=== PATIENT | female | born 1970 | race Caucasian/White ===

== ENCOUNTER 2017-01-30 11:05 | Inpatient (IN) | payer MEDICAID ==
[~2017-01-30 11:05] MED LIST: ENULOSE10 GM/151 PO; LASIX20 M1 PO; POTASSIUM CHLO10 ME2 PO; ULTRAM50 M1 PO
[2017-01-30] MEDS ORDERED: ZITHROMAX250 M1 PO (11:26)
[2017-01-30] MEDS ORDERED: PROVENTIL HFA6.7 G1 INH (11:27)
[2017-01-30] MEDS ORDERED: ERYTHROMYCIN1 GM (11:29)
[2017-01-30 12:38] LABS: BASO % 0.5 % (0-2); EOS % 2.2 % (0-7); HCT-HEMATOCRIT 30.7 % (34.0-49.0); HGB-HEMOGLOBIN 9.8 gm/dl (12.0-15.5); IMMATURE GRANULOCYTES ABSOLUTE 0.01 tho/cmm (0-0.03); IMMATURE GRANULOCYTES PERCENT 0.5 % (0-0.3); LYMPH % 60.1 % (20-45); LYMPH ABSOLUTE COUNT 1.1 tho/cmm (0.8-4.5); MCH (MEAN CORPUSCULAR HGB) 32.2 pg (28.0-32.0); MCHC MEAN CORPUSCULAR HGB CONC 31.9 % (32.0-36.0); MONO % 18.6 % (0-12); MONOCYTE ABSOLUTE COUNT 0.3 tho/cmm (0.0-1.2); NEUTROPHILS % 18.1 % (40-80); RED BLOOD COUNT 3.04 mil/cmm (4.00-5.20); RED CELL DISTRIBUTION WIDTH 17.8 % (12.4-16.4)
[2017-01-30 12:40] LABS: NEUTROPHIL-AUTOMATED 0.3 tho/cmm (1.6-8.0); WHITE BLOOD COUNT 1.8 tho/cmm (4.0-10.0)
[2017-01-30 12:41] LABS: NEUTROPHIL ABSOLUTE COUNT 0.3 tho/cmm (1.6-8.0); PLATELET COUNT 24 tho/cmm (150-450)
[2017-01-30 12:50] LABS: ALB/GLOB RATIO 0.4 (0.8-2.0); ALBUMIN 2.2 g/dl (3.5-5.0); ALCOHOL (ETOH) 261 mg/dl (<10); ALKALINE PHOSPHATASE 189 U/L (33-138); ALT/SGPT 42 U/L (12-78); AST/SGOT 117 U/L (10-40); BILIRUBIN,DIRECT 1.8 mg/dl (0.0-0.3); BILIRUBIN,INDIRECT 0.8 mg/dL (0.0-1.0); BILIRUBIN,TOTAL 2.6 mg/dl (0-1.5); MAGNESIUM 1.6 mg/dl (1.3-2.6)
[2017-01-30 13:35] LABS: ANION GAP 13 mmol/L (0-20); BLOOD UREA NITROGEN 3 mg/dl (6-24); CALCIUM 7.3 mg/dl (8.5-10.5); CARBON DIOXIDE-VENOUS 27 mmol/L (22-32); CHLORIDE 111 mmol/l (96-110); GLUCOSE 119 mg/dL (70-110); SODIUM 147 mmol/L (135-145); eGFR VALUE FOR BLACK >90 mL/Min
[2017-01-30 13:54] LABS: PROCALCITONIN <0.05 ng/ml (0.05-0.09)
[2017-01-30 15:06] LABS: C-REACTIVE PROTEIN 0.5 mg/dl (0-0.9)
[2017-01-30 15:44] LABS: TSH-THYROID STIMULATING HORM. 1.37 uIU/ml (0.40-3.80)
[2017-01-30 15:45] LABS: FOLATE (FOLIC ACID) 20.8 ng/ml (3.20-20.00)
[2017-01-30 21:00] LABS: INR 1.6 INR (0.9-1.1); PROTHROMBIN TIME 18.9 SECONDS (9.0-13.6)
[2017-01-30 21:05] LABS: EOS % 0.8 % (0-7); HGB-HEMOGLOBIN 7.5 gm/dl (12.0-15.5); IMMATURE GRANULOCYTES ABSOLUTE 0.01 tho/cmm (0-0.03); IMMATURE GRANULOCYTES PERCENT 0.8 % (0-0.3); LYMPH % 55.8 % (20-45); LYMPH ABSOLUTE COUNT 0.7 tho/cmm (0.8-4.5); MCH (MEAN CORPUSCULAR HGB) 31.8 pg (28.0-32.0); MCV (MEAN CELL VOLUME) 100.8 fl (82.0-96.0); MONOCYTE ABSOLUTE COUNT 0.2 tho/cmm (0.0-1.2); NEUTROPHILS % 28.6 % (40-80); RED BLOOD COUNT 2.36 mil/cmm (4.00-5.20); RED CELL DISTRIBUTION WIDTH 17.9 % (12.4-16.4)
[2017-01-30 21:06] LABS: HCT-HEMATOCRIT 23.8 % (34.0-49.0); MCHC MEAN CORPUSCULAR HGB CONC 31.5 % (32.0-36.0); NEUTROPHIL-AUTOMATED 0.4 tho/cmm (1.6-8.0); WHITE BLOOD COUNT 1.3 tho/cmm (4.0-10.0)
[2017-01-30 21:07] LABS: NEUTROPHIL ABSOLUTE COUNT 0.4 tho/cmm (1.6-8.0); PLATELET COUNT 15 tho/cmm (150-450)
[2017-01-30 21:15] LABS: ALB/GLOB RATIO 0.5 (0.8-2.0); ALKALINE PHOSPHATASE 162 U/L (33-138); ALT/SGPT 33 U/L (12-78); ANION GAP 12 mmol/L (0-20); AST/SGOT 98 U/L (10-40); BILIRUBIN,TOTAL 2.1 mg/dl (0-1.5); BLOOD UREA NITROGEN 4 mg/dl (6-24); CALCIUM 6.7 mg/dl (8.5-10.5); CARBON DIOXIDE-VENOUS 24 mmol/L (22-32); CHLORIDE 110 mmol/l (96-110); CREATININE 0.49 mg/dl (0.50-1.10); GLUCOSE 137 mg/dL (70-110); SODIUM 143 mmol/L (135-145); eGFR VALUE FOR BLACK >90 mL/Min
[2017-01-31 04:56] LABS: INR 1.7 INR (0.9-1.1); PROTHROMBIN TIME 20.5 SECONDS (9.0-13.6)
[2017-01-31 05:10] LABS: HGB-HEMOGLOBIN 7.9 gm/dl (12.0-15.5); LYMPH % 51.6 % (20-45); LYMPH ABSOLUTE COUNT 0.7 tho/cmm (0.8-4.5); MCHC MEAN CORPUSCULAR HGB CONC 31.6 % (32.0-36.0); MCV (MEAN CELL VOLUME) 101.2 fl (82.0-96.0); MONO % 17.5 % (0-12); MONOCYTE ABSOLUTE COUNT 0.2 tho/cmm (0.0-1.2); NEUTROPHILS % 30.9 % (40-80); RED BLOOD COUNT 2.47 mil/cmm (4.00-5.20); RED CELL DISTRIBUTION WIDTH 17.6 % (12.4-16.4)
[2017-01-31 05:15] LABS: NEUTROPHIL-AUTOMATED 0.4 tho/cmm (1.6-8.0); WHITE BLOOD COUNT 1.3 tho/cmm (4.0-10.0)
[2017-01-31 05:16] LABS: NEUTROPHIL ABSOLUTE COUNT 0.4 tho/cmm (1.6-8.0); PLATELET COUNT 13 tho/cmm (150-450)
[2017-01-31 05:26] LABS: ALB/GLOB RATIO 0.4 (0.8-2.0); ALKALINE PHOSPHATASE 148 U/L (33-138); ALT/SGPT 37 U/L (12-78); ANION GAP 11 mmol/L (0-20); AST/SGOT 101 U/L (10-40); BILIRUBIN,TOTAL 2.5 mg/dl (0-1.5); BLOOD UREA NITROGEN 4 mg/dl (6-24); CALCIUM 6.6 mg/dl (8.5-10.5); CARBON DIOXIDE-VENOUS 25 mmol/L (22-32); CHLORIDE 111 mmol/l (96-110); CREATININE 0.46 mg/dl (0.50-1.10); GLUCOSE 112 mg/dL (70-110); MAGNESIUM 1.7 mg/dl (1.3-2.6); PHOSPHOROUS 2.3 mg/dl (2.5-4.9); POTASSIUM 3.6 mmol/L (3.7-5.1); SODIUM 143 mmol/L (135-145); eGFR VALUE FOR BLACK >90 mL/Min
[2017-02-01 05:55] LABS: EOS % 1.6 % (0-7); HCT-HEMATOCRIT 24.3 % (34.0-49.0); HGB-HEMOGLOBIN 7.6 gm/dl (12.0-15.5); LYMPH % 18.1 % (20-45); LYMPH ABSOLUTE COUNT 0.2 tho/cmm (0.8-4.5); MCH (MEAN CORPUSCULAR HGB) 31.8 pg (28.0-32.0); MCHC MEAN CORPUSCULAR HGB CONC 31.3 % (32.0-36.0); MCV (MEAN CELL VOLUME) 101.7 fl (82.0-96.0); MONO % 2.4 % (0-12); NEUTROPHILS % 77.9 % (40-80); RED BLOOD COUNT 2.39 mil/cmm (4.00-5.20); RED CELL DISTRIBUTION WIDTH 17.5 % (12.4-16.4)
[2017-02-01 05:58] LABS: ANION GAP 11 mmol/L (0-20); BLOOD UREA NITROGEN 3 mg/dl (6-24); CALCIUM 7.8 mg/dl (8.5-10.5); CARBON DIOXIDE-VENOUS 25 mmol/L (22-32); CHLORIDE 111 mmol/l (96-110); CREATININE 0.48 mg/dl (0.50-1.10); GLUCOSE 89 mg/dL (70-110); MAGNESIUM 1.9 mg/dl (1.3-2.6); POTASSIUM 3.8 mmol/L (3.7-5.1); SODIUM 143 mmol/L (135-145); eGFR VALUE FOR BLACK >90 mL/Min
[2017-02-01 05:59] LABS: PLATELET COUNT 12 tho/cmm (150-450); WHITE BLOOD COUNT 1.3 tho/cmm (4.0-10.0)
[2017-02-02 05:18] LABS: ALB/GLOB RATIO 0.4 (0.8-2.0); ALBUMIN 1.9 g/dl (3.5-5.0); ALKALINE PHOSPHATASE 120 U/L (33-138); ALT/SGPT 28 U/L (12-78); ANION GAP 10 mmol/L (0-20); AST/SGOT 65 U/L (10-40); BILIRUBIN,TOTAL 3.2 mg/dl (0-1.5); BLOOD UREA NITROGEN 4 mg/dl (6-24); CALCIUM 7.6 mg/dl (8.5-10.5); CARBON DIOXIDE-VENOUS 25 mmol/L (22-32); CHLORIDE 109 mmol/l (96-110); CREATININE 0.44 mg/dl (0.50-1.10); GLUCOSE 97 mg/dL (70-110); POTASSIUM 3.6 mmol/L (3.7-5.1); SODIUM 140 mmol/L (135-145); eGFR VALUE FOR BLACK >90 mL/Min
[2017-02-02 05:22] LABS: EOS % 2.7 % (0-7); EOSINOPHIL ABSOLUTE COUNT 0.1 tho/cmm (0.0-0.7); HCT-HEMATOCRIT 24.1 % (34.0-49.0); HGB-HEMOGLOBIN 7.7 gm/dl (12.0-15.5); IMMATURE GRANULOCYTES ABSOLUTE 0.01 tho/cmm (0-0.03); IMMATURE GRANULOCYTES PERCENT 0.4 % (0-0.3); LYMPH % 25.8 % (20-45); LYMPH ABSOLUTE COUNT 0.7 tho/cmm (0.8-4.5); MONO % 13.7 % (0-12); MONOCYTE ABSOLUTE COUNT 0.4 tho/cmm (0.0-1.2); NEUTROPHIL ABSOLUTE COUNT 1.5 tho/cmm (1.6-8.0); NEUTROPHIL-AUTOMATED 1.5 tho/cmm (1.6-8.0); NEUTROPHILS % 57.4 % (40-80); RED BLOOD COUNT 2.41 mil/cmm (4.00-5.20); RED CELL DISTRIBUTION WIDTH 17.3 % (12.4-16.4)
[2017-02-02 05:23] LABS: PLATELET COUNT 16 tho/cmm (150-450); WHITE BLOOD COUNT 2.6 tho/cmm (4.0-10.0)
[2017-02-03 06:01] LABS: BASO % 0.5 % (0-2); EOS % 3.7 % (0-7); EOSINOPHIL ABSOLUTE COUNT 0.1 tho/cmm (0.0-0.7); HCT-HEMATOCRIT 25.7 % (34.0-49.0); HGB-HEMOGLOBIN 8.2 gm/dl (12.0-15.5); IMMATURE GRANULOCYTES ABSOLUTE 0.01 tho/cmm (0-0.03); IMMATURE GRANULOCYTES PERCENT 0.3 % (0-0.3); LYMPH % 24.8 % (20-45); LYMPH ABSOLUTE COUNT 0.9 tho/cmm (0.8-4.5); MCH (MEAN CORPUSCULAR HGB) 31.9 pg (28.0-32.0); MCHC MEAN CORPUSCULAR HGB CONC 31.9 % (32.0-36.0); MONO % 17.1 % (0-12); MONOCYTE ABSOLUTE COUNT 0.6 tho/cmm (0.0-1.2); NEUTROPHILS % 53.6 % (40-80); RED BLOOD COUNT 2.57 mil/cmm (4.00-5.20); RED CELL DISTRIBUTION WIDTH 17.2 % (12.4-16.4); WHITE BLOOD COUNT 3.8 tho/cmm (4.0-10.0)
[2017-02-03 06:05] LABS: PLATELET COUNT 31 tho/cmm (150-450)
[2017-02-03 13:18] LABS: BASO % 0.3 % (0-2); EOS % 4.2 % (0-7); EOSINOPHIL ABSOLUTE COUNT 0.1 tho/cmm (0.0-0.7); HCT-HEMATOCRIT 26.5 % (34.0-49.0); HGB-HEMOGLOBIN 8.4 gm/dl (12.0-15.5); IMMATURE GRANULOCYTES ABSOLUTE 0.02 tho/cmm (0-0.03); IMMATURE GRANULOCYTES PERCENT 0.6 % (0-0.3); LYMPH % 24.8 % (20-45); LYMPH ABSOLUTE COUNT 0.8 tho/cmm (0.8-4.5); MCH (MEAN CORPUSCULAR HGB) 31.8 pg (28.0-32.0); MCHC MEAN CORPUSCULAR HGB CONC 31.7 % (32.0-36.0); MCV (MEAN CELL VOLUME) 100.4 fl (82.0-96.0); MONO % 17.6 % (0-12); MONOCYTE ABSOLUTE COUNT 0.6 tho/cmm (0.0-1.2); NEUTROPHIL ABSOLUTE COUNT 1.7 tho/cmm (1.6-8.0); NEUTROPHIL-AUTOMATED 1.7 tho/cmm (1.6-8.0); NEUTROPHILS % 52.5 % (40-80); RED BLOOD COUNT 2.64 mil/cmm (4.00-5.20); RED CELL DISTRIBUTION WIDTH 17.2 % (12.4-16.4); WHITE BLOOD COUNT 3.3 tho/cmm (4.0-10.0)
[2017-02-03 13:24] LABS: PLATELET COUNT 28 tho/cmm (150-450)
[2017-02-03 13:38] LABS: ALB/GLOB RATIO 0.4 (0.8-2.0); ALBUMIN 1.9 g/dl (3.5-5.0); ALKALINE PHOSPHATASE 150 U/L (33-138); ALT/SGPT 28 U/L (12-78); ANION GAP 10 mmol/L (0-20); AST/SGOT 63 U/L (10-40); BILIRUBIN,TOTAL 3.1 mg/dl (0-1.5); BLOOD UREA NITROGEN 5 mg/dl (6-24); CALCIUM 7.8 mg/dl (8.5-10.5); CARBON DIOXIDE-VENOUS 25 mmol/L (22-32); CHLORIDE 109 mmol/l (96-110); CREATININE 0.55 mg/dl (0.50-1.10); GLUCOSE 141 mg/dL (70-110); MAGNESIUM 1.5 mg/dl (1.3-2.6); PHOSPHOROUS 4.3 mg/dl (2.5-4.9); POTASSIUM 4.3 mmol/L (3.7-5.1); SODIUM 140 mmol/L (135-145); eGFR VALUE FOR BLACK >90 mL/Min
[2017-02-04 05:23] LABS: BASO % 0.3 % (0-2); EOS % 4.8 % (0-7); EOSINOPHIL ABSOLUTE COUNT 0.2 tho/cmm (0.0-0.7); HCT-HEMATOCRIT 27.4 % (34.0-49.0); HGB-HEMOGLOBIN 8.7 gm/dl (12.0-15.5); IMMATURE GRANULOCYTES ABSOLUTE 0.01 tho/cmm (0-0.03); IMMATURE GRANULOCYTES PERCENT 0.3 % (0-0.3); LYMPH % 28.8 % (20-45); LYMPH ABSOLUTE COUNT 1.1 tho/cmm (0.8-4.5); MCH (MEAN CORPUSCULAR HGB) 31.9 pg (28.0-32.0); MCHC MEAN CORPUSCULAR HGB CONC 31.8 % (32.0-36.0); MCV (MEAN CELL VOLUME) 100.4 fl (82.0-96.0); MONO % 20.6 % (0-12); MONOCYTE ABSOLUTE COUNT 0.8 tho/cmm (0.0-1.2); NEUTROPHIL ABSOLUTE COUNT 1.8 tho/cmm (1.6-8.0); NEUTROPHIL-AUTOMATED 1.8 tho/cmm (1.6-8.0); NEUTROPHILS % 45.2 % (40-80); RED BLOOD COUNT 2.73 mil/cmm (4.00-5.20); RED CELL DISTRIBUTION WIDTH 17.2 % (12.4-16.4); WHITE BLOOD COUNT 3.9 tho/cmm (4.0-10.0)
[2017-02-04 05:28] LABS: PLATELET COUNT 36 tho/cmm (150-450)
[2017-02-04 05:33] LABS: ALB/GLOB RATIO 0.5 (0.8-2.0); ALKALINE PHOSPHATASE 145 U/L (33-138); ALT/SGPT 30 U/L (12-78); ANION GAP 12 mmol/L (0-20); AST/SGOT 60 U/L (10-40); BILIRUBIN,TOTAL 3.2 mg/dl (0-1.5); BLOOD UREA NITROGEN 7 mg/dl (6-24); CALCIUM 8.4 mg/dl (8.5-10.5); CARBON DIOXIDE-VENOUS 26 mmol/L (22-32); CHLORIDE 108 mmol/l (96-110); CREATININE 0.43 mg/dl (0.50-1.10); GLUCOSE 106 mg/dL (70-110); MAGNESIUM 1.6 mg/dl (1.3-2.6); PHOSPHOROUS 3.8 mg/dl (2.5-4.9); SODIUM 142 mmol/L (135-145); eGFR VALUE FOR BLACK >90 mL/Min
[2017-02-04] MEDS ORDERED: LEVAQUIN750 M1 PO (15:52)
[2017-02-04] MEDS ORDERED: AUGMENTIN 875-1 EAC2 PO (15:53)
[2017-02-04] MEDS ORDERED: ENULOSE10 GM/151 PO (15:54)
[2017-02-04] MEDS ORDERED: POTASSIUM CHLO20 ME4 PO (15:55)
[2017-02-04] MEDS ORDERED: FOLIC ACID1 M1 PO (15:55)
[2017-02-04] MEDS ORDERED: THIAMINE HCL100 M2 PO (15:56)
[2017-07-27] MEDS ORDERED: NO HOME MEDICATION XX (09:21)
== END 2017-02-04 17:00 | DRG 871 ==
LOC: EDMED 11:05 → EMR2 16:12 → PCUB 16:20
PROVIDERS: Emergency Medicine; Internal Medicine; Internal Medicine Cardiovascular Disease; Internal Medicine Hematology & Oncology; ADMIT Hospitalist
PROC: 02HV33Z Insertion of Infusion Device into Superior Vena Cava, Percutaneous Approach (ICD-10-PCS; principal; 2017-01-30)
PROC: B548ZZA Ultrasonography of Superior Vena Cava, Guidance (ICD-10-PCS; 2017-01-30)
PROC: 30233N1 Transfusion of Nonautologous Red Blood Cells into Peripheral Vein, Percutaneous Approach (ICD-10-PCS; 2017-01-31)
DX: A41.9 Sepsis, unspecified organism (principal); J18.9 Pneumonia, unspecified organism; R65.21 Severe sepsis with septic shock; D61.818 Other pancytopenia; I85.00 Esophageal varices without bleeding; D68.9 Coagulation defect, unspecified; K76.6 Portal hypertension; D69.6 Thrombocytopenia, unspecified; E11.9 Type 2 diabetes mellitus without complications; I10 Essential (primary) hypertension; J44.9 Chronic obstructive pulmonary disease, unspecified; K80.20 Calculus of gallbladder without cholecystitis without obstruction; Z96.651 Presence of right artificial knee joint; K74.60 Unspecified cirrhosis of liver; B19.20 Unspecified viral hepatitis C without hepatic coma; F31.9 Bipolar disorder, unspecified; F10.20 Alcohol dependence, uncomplicated; G89.29 Other chronic pain; M54.5 Low back pain; F17.210 Nicotine dependence, cigarettes, uncomplicated; Z91.19 Patient's noncompliance with other medical treatment and regimen; D64.9 Anemia, unspecified; J11.1 Influenza due to unidentified influenza virus with other respiratory manifestations; R16.1 Splenomegaly, not elsewhere classified; E83.39 Other disorders of phosphorus metabolism
CPT/HCPCS: C1751; G0480; G8978-GP-CI; G8979-GP-CH; J1956; J2270; J2405; J2543; J3370; J3411; J3475; J7030; J7050; P9031; P9033

== ENCOUNTER 2017-02-28 20:27 | Inpatient (IN) | payer MEDICAID ==
[~2017-02-28 20:27] MED LIST changes: +AUGMENTIN 875-1 EAC2 PO; +ERYTHROMYCIN1 GM; +FOLIC ACID1 M1 PO; +LEVAQUIN750 M1 PO; +POTASSIUM CHLO20 ME4 PO; +PROVENTIL HFA6.7 G1 INH; +THIAMINE HCL100 M2 PO; +ZITHROMAX250 M1 PO
[2017-02-28 22:07] LABS: URINE BILIRUBIN NEGATIVE (NEG); URINE BLOOD SMALL (NEG); URINE GLUCOSE (UA) NEGATIVE (NEG); URINE KETONE NEGATIVE (NEG); URINE LEUKOCYTE ESTERASE NEGATIVE (NEG); URINE NITRITE NEGATIVE (NEG); URINE PH 6.5 (5.0-8.0); URINE PROTEIN NEGATIVE (NEG)
[2017-02-28 22:09] LABS: URINE APPEARANCE SLIGHTLY HAZY; URINE COLOR YELLOW
[2017-02-28 22:15] LABS: URINE WBC 0 /[HPF] (0-5)
[2017-02-28 22:46] LABS: BASO % 0.6 % (0-2); EOS % 3.5 % (0-7); EOSINOPHIL ABSOLUTE COUNT 0.1 tho/cmm (0.0-0.7); HCT-HEMATOCRIT 24.7 % (34.0-49.0); HGB-HEMOGLOBIN 7.9 gm/dl (12.0-15.5); IMMATURE GRANULOCYTES ABSOLUTE 0.02 tho/cmm (0-0.03); IMMATURE GRANULOCYTES PERCENT 0.6 % (0-0.3); LYMPH % 36.3 % (20-45); LYMPH ABSOLUTE COUNT 1.1 tho/cmm (0.8-4.5); MCH (MEAN CORPUSCULAR HGB) 33.3 pg (28.0-32.0); MCV (MEAN CELL VOLUME) 104.2 fl (82.0-96.0); MONO % 15.6 % (0-12); MONOCYTE ABSOLUTE COUNT 0.5 tho/cmm (0.0-1.2); NEUTROPHIL ABSOLUTE COUNT 1.4 tho/cmm (1.6-8.0); NEUTROPHIL-AUTOMATED 1.4 tho/cmm (1.6-8.0); NEUTROPHILS % 43.4 % (40-80); RED BLOOD COUNT 2.37 mil/cmm (4.00-5.20); RED CELL DISTRIBUTION WIDTH 19.6 % (12.4-16.4); WHITE BLOOD COUNT 3.1 tho/cmm (4.0-10.0)
[2017-02-28 22:51] LABS: PLATELET COUNT 38 tho/cmm (150-450)
[2017-02-28 23:00] LABS: ALB/GLOB RATIO 0.5 (0.8-2.0); ALBUMIN 2.5 g/dl (3.5-5.0); ALKALINE PHOSPHATASE 185 U/L (33-138); ALT/SGPT 45 U/L (12-78); ANION GAP 16 mmol/L (0-20); AST/SGOT 113 U/L (10-40); BILIRUBIN,TOTAL 3.5 mg/dl (0-1.5); BLOOD UREA NITROGEN 5 mg/dl (6-24); CALCIUM 7.4 mg/dl (8.5-10.5); CARBON DIOXIDE-VENOUS 23 mmol/L (22-32); CHLORIDE 113 mmol/l (96-110); CREATININE 0.33 mg/dl (0.50-1.10); GLUCOSE 88 mg/dL (70-110); POTASSIUM 3.4 mmol/L (3.7-5.1); SODIUM 149 mmol/L (135-145); eGFR VALUE FOR BLACK >90 mL/Min
[2017-02-28 23:16] LABS: ALCOHOL (ETOH) 300 mg/dl (<10)
[2017-02-28 23:17] LABS: INR 1.6 INR (0.9-1.1); PROTHROMBIN TIME 19.1 SECONDS (9.0-13.6)
[2017-03-01 00:29] LABS: PROCALCITONIN <0.05 ng/ml (0.05-0.09)
[2017-03-01 01:29] LABS: C-REACTIVE PROTEIN 0.4 mg/dl (0-0.9); MAGNESIUM 1.8 mg/dl (1.8-2.6); PHOSPHOROUS 3.2 mg/dl (2.5-4.9)
[2017-03-01 01:32] LABS: TSH-THYROID STIMULATING HORM. 1.36 uIU/ml (0.40-3.80)
[2017-03-01 04:04] LABS: BASO % 0.5 % (0-2); EOS % 4.7 % (0-7); EOSINOPHIL ABSOLUTE COUNT 0.1 tho/cmm (0.0-0.7); HGB-HEMOGLOBIN 7.1 gm/dl (12.0-15.5); IMMATURE GRANULOCYTES ABSOLUTE 0.01 tho/cmm (0-0.03); IMMATURE GRANULOCYTES PERCENT 0.5 % (0-0.3); LYMPH ABSOLUTE COUNT 0.7 tho/cmm (0.8-4.5); MCH (MEAN CORPUSCULAR HGB) 33.5 pg (28.0-32.0); MCV (MEAN CELL VOLUME) 104.7 fl (82.0-96.0); MEAN PLATELET VOLUME 9.5 cmc (9.4-12.4); MONO % 20.3 % (0-12); MONOCYTE ABSOLUTE COUNT 0.4 tho/cmm (0.0-1.2); NEUTROPHIL ABSOLUTE COUNT 0.7 tho/cmm (1.6-8.0); NEUTROPHIL-AUTOMATED 0.7 tho/cmm (1.6-8.0); RED BLOOD COUNT 2.12 mil/cmm (4.00-5.20); RED CELL DISTRIBUTION WIDTH 19.5 % (12.4-16.4)
[2017-03-01 04:17] LABS: INR 1.6 INR (0.9-1.1); PROTHROMBIN TIME 19.2 SECONDS (9.0-13.6)
[2017-03-01 04:27] LABS: ALB/GLOB RATIO 0.5 (0.8-2.0); ALBUMIN 2.1 g/dl (3.5-5.0); ALKALINE PHOSPHATASE 140 U/L (33-138); ALT/SGPT 40 U/L (12-78); ANION GAP 14 mmol/L (0-20); AST/SGOT 104 U/L (10-40); BILIRUBIN,DIRECT 1.9 mg/dl (0.0-0.3); BILIRUBIN,INDIRECT 1.2 mg/dL (0.0-1.0); BILIRUBIN,TOTAL 3.1 mg/dl (0-1.5); BLOOD UREA NITROGEN 5 mg/dl (6-24); CALCIUM 6.9 mg/dl (8.5-10.5); CARBON DIOXIDE-VENOUS 25 mmol/L (22-32); CHLORIDE 112 mmol/l (96-110); CREATININE 0.36 mg/dl (0.50-1.10); GLUCOSE 89 mg/dL (70-110); POTASSIUM 3.1 mmol/L (3.7-5.1); SODIUM 148 mmol/L (135-145); eGFR VALUE FOR BLACK >90 mL/Min
[2017-03-01 04:44] LABS: HCT-HEMATOCRIT 22.2 % (34.0-49.0)
[2017-03-01 04:47] LABS: PLATELET COUNT 23 tho/cmm (150-450); WHITE BLOOD COUNT 1.9 tho/cmm (4.0-10.0)
[2017-03-02 05:52] LABS: INR 1.7 INR (0.9-1.1); PROTHROMBIN TIME 19.8 SECONDS (9.0-13.6)
[2017-03-02 05:53] LABS: BASO % 0.5 % (0-2); EOS % 3.7 % (0-7); EOSINOPHIL ABSOLUTE COUNT 0.1 tho/cmm (0.0-0.7); HCT-HEMATOCRIT 24.3 % (34.0-49.0); HGB-HEMOGLOBIN 7.9 gm/dl (12.0-15.5); IMMATURE GRANULOCYTES ABSOLUTE 0.01 tho/cmm (0-0.03); IMMATURE GRANULOCYTES PERCENT 0.5 % (0-0.3); LYMPH % 20.4 % (20-45); LYMPH ABSOLUTE COUNT 0.4 tho/cmm (0.8-4.5); MCH (MEAN CORPUSCULAR HGB) 33.3 pg (28.0-32.0); MCHC MEAN CORPUSCULAR HGB CONC 32.5 % (32.0-36.0); MCV (MEAN CELL VOLUME) 102.5 fl (82.0-96.0); MONO % 20.9 % (0-12); MONOCYTE ABSOLUTE COUNT 0.4 tho/cmm (0.0-1.2); RED BLOOD COUNT 2.37 mil/cmm (4.00-5.20); RED CELL DISTRIBUTION WIDTH 18.4 % (12.4-16.4)
[2017-03-02 06:00] LABS: PLATELET COUNT 24 tho/cmm (150-450); WHITE BLOOD COUNT 1.9 tho/cmm (4.0-10.0)
[2017-03-02 06:03] LABS: ALB/GLOB RATIO 0.5 (0.8-2.0); ALBUMIN 2.3 g/dl (3.5-5.0); ALKALINE PHOSPHATASE 127 U/L (33-138); ALT/SGPT 41 U/L (12-78); ANION GAP 14 mmol/L (0-20); AST/SGOT 111 U/L (10-40); BILIRUBIN,TOTAL 4.4 mg/dl (0-1.5); BLOOD UREA NITROGEN 3 mg/dl (6-24); CALCIUM 7.7 mg/dl (8.5-10.5); CARBON DIOXIDE-VENOUS 23 mmol/L (22-32); CHLORIDE 107 mmol/l (96-110); CREATININE 0.46 mg/dl (0.50-1.10); GLUCOSE 91 mg/dL (70-110); MAGNESIUM 1.7 mg/dl (1.8-2.6); POTASSIUM 3.6 mmol/L (3.7-5.1); SODIUM 140 mmol/L (135-145); eGFR VALUE FOR BLACK >90 mL/Min
[2017-03-03 05:42] LABS: BASO % 0.3 % (0-2); EOS % 5.8 % (0-7); EOSINOPHIL ABSOLUTE COUNT 0.2 tho/cmm (0.0-0.7); HCT-HEMATOCRIT 25.4 % (34.0-49.0); IMMATURE GRANULOCYTES ABSOLUTE 0.01 tho/cmm (0-0.03); IMMATURE GRANULOCYTES PERCENT 0.3 % (0-0.3); LYMPH % 27.7 % (20-45); MCH (MEAN CORPUSCULAR HGB) 32.7 pg (28.0-32.0); MCHC MEAN CORPUSCULAR HGB CONC 31.5 % (32.0-36.0); MCV (MEAN CELL VOLUME) 103.7 fl (82.0-96.0); MONO % 23.6 % (0-12); MONOCYTE ABSOLUTE COUNT 0.8 tho/cmm (0.0-1.2); NEUTROPHIL ABSOLUTE COUNT 1.5 tho/cmm (1.6-8.0); NEUTROPHIL-AUTOMATED 1.5 tho/cmm (1.6-8.0); NEUTROPHILS % 42.3 % (40-80); RED BLOOD COUNT 2.45 mil/cmm (4.00-5.20); RED CELL DISTRIBUTION WIDTH 18.6 % (12.4-16.4)
[2017-03-03 05:47] LABS: WHITE BLOOD COUNT 3.5 tho/cmm (4.0-10.0)
[2017-03-03 05:48] LABS: PLATELET COUNT 32 tho/cmm (150-450)
[2017-03-03 06:00] LABS: ALB/GLOB RATIO 0.5 (0.8-2.0); ALBUMIN 2.2 g/dl (3.5-5.0); ALKALINE PHOSPHATASE 187 U/L (33-138); ALT/SGPT 38 U/L (12-78); ANION GAP 13 mmol/L (0-20); AST/SGOT 89 U/L (10-40); BILIRUBIN,TOTAL 3.2 mg/dl (0-1.5); BLOOD UREA NITROGEN 4 mg/dl (6-24); CALCIUM 8.2 mg/dl (8.5-10.5); CARBON DIOXIDE-VENOUS 23 mmol/L (22-32); CHLORIDE 110 mmol/l (96-110); CREATININE 0.45 mg/dl (0.50-1.10); GLUCOSE 99 mg/dL (70-110); MAGNESIUM 1.7 mg/dl (1.8-2.6); PHOSPHOROUS 4.5 mg/dl (2.5-4.9); POTASSIUM 3.9 mmol/L (3.7-5.1); SODIUM 142 mmol/L (135-145); eGFR VALUE FOR BLACK >90 mL/Min
[2017-03-03] MEDS ORDERED: PROTONIX40 M2 PO (11:57)
[2017-03-03] MEDS ORDERED: DAILY MULTIPLE1 EAC2 PO (12:01)
[2017-07-27] MEDS ORDERED: NO HOME MEDICATION XX (09:21)
== END 2017-03-03 13:00 | DRG 441 ==
LOC: EDMED 20:27 → EMR2 03-01 01:07 → PCUB 03-01 02:19
PROVIDERS: Emergency Medicine; Internal Medicine; Internal Medicine Gastroenterology; ADMIT Internal Medicine
PROC: B246ZZZ Ultrasonography of Right and Left Heart (ICD-10-PCS; principal; 2017-03-01)
PROC: 3E0F7GC Introduction of Other Therapeutic Substance into Respiratory Tract, Via Natural or Artificial Opening (ICD-10-PCS; 2017-03-01)
DX: K72.90 Hepatic failure, unspecified without coma (principal); J18.9 Pneumonia, unspecified organism; D61.818 Other pancytopenia; D68.9 Coagulation defect, unspecified; E87.0 Hyperosmolality and hypernatremia; E83.42 Hypomagnesemia; K76.6 Portal hypertension; F10.239 Alcohol dependence with withdrawal, unspecified; K70.30 Alcoholic cirrhosis of liver without ascites; F10.229 Alcohol dependence with intoxication, unspecified; B19.20 Unspecified viral hepatitis C without hepatic coma; E11.9 Type 2 diabetes mellitus without complications; E87.6 Hypokalemia; F31.9 Bipolar disorder, unspecified; F60.3 Borderline personality disorder; I10 Essential (primary) hypertension; J44.9 Chronic obstructive pulmonary disease, unspecified; K80.20 Calculus of gallbladder without cholecystitis without obstruction; Z91.19 Patient's noncompliance with other medical treatment and regimen; F17.210 Nicotine dependence, cigarettes, uncomplicated
CPT/HCPCS: G0480; J2270; J2405; J2543; J3370; J3475; J7030

== ENCOUNTER 2017-03-19 18:44 | Observation (INO) | payer MEDICAID ==
[~2017-03-19 18:44] MED LIST changes: +DAILY MULTIPLE1 EAC2 PO; +PROTONIX40 M2 PO
[2017-03-19 20:21] LABS: EOS % 6.1 % (0-7); EOSINOPHIL ABSOLUTE COUNT 0.2 tho/cmm (0.0-0.7); HCT-HEMATOCRIT 23.2 % (34.0-49.0); HGB-HEMOGLOBIN 7.2 gm/dl (12.0-15.5); IMMATURE GRANULOCYTES ABSOLUTE 0.01 tho/cmm (0-0.03); IMMATURE GRANULOCYTES PERCENT 0.3 % (0-0.3); LYMPH % 40.2 % (20-45); LYMPH ABSOLUTE COUNT 1.2 tho/cmm (0.8-4.5); MCH (MEAN CORPUSCULAR HGB) 31.4 pg (28.0-32.0); MCV (MEAN CELL VOLUME) 101.3 fl (82.0-96.0); MONO % 13.5 % (0-12); MONOCYTE ABSOLUTE COUNT 0.4 tho/cmm (0.0-1.2); NEUTROPHIL ABSOLUTE COUNT 1.2 tho/cmm (1.6-8.0); NEUTROPHIL-AUTOMATED 1.2 tho/cmm (1.6-8.0); NEUTROPHILS % 38.9 % (40-80); RED BLOOD COUNT 2.29 mil/cmm (4.00-5.20)
[2017-03-19 20:23] LABS: PLATELET COUNT 31 tho/cmm (150-450)
[2017-03-19 20:34] LABS: ANION GAP 11 mmol/L (0-20); BLOOD UREA NITROGEN 9 mg/dl (6-24); CALCIUM 7.6 mg/dl (8.5-10.5); CARBON DIOXIDE-VENOUS 24 mmol/L (22-32); CHLORIDE 113 mmol/l (96-110); CREATININE 0.41 mg/dl (0.50-1.10); GLUCOSE 99 mg/dL (70-110); POTASSIUM 3.3 mmol/L (3.7-5.1); SODIUM 145 mmol/L (135-145); eGFR VALUE FOR BLACK >90 mL/Min
[2017-03-19 20:50] LABS: ALB/GLOB RATIO 0.5 (0.8-2.0); ALBUMIN 2.2 g/dl (3.5-5.0); BILIRUBIN,DIRECT 1.5 mg/dl (0.0-0.3); BILIRUBIN,INDIRECT 0.9 mg/dL (0.0-1.0); BILIRUBIN,TOTAL 2.4 mg/dl (0-1.5)
[2017-03-19 20:57] LABS: ALCOHOL (ETOH) 337 mg/dl (<10)
[2017-03-19 22:20] LABS: INR 1.5 INR (0.9-1.1); PROTHROMBIN TIME 18.1 SECONDS (9.0-13.6)
[2017-03-19 22:49] LABS: C-REACTIVE PROTEIN 0.3 mg/dl (0-0.9); PHOSPHOROUS 3.6 mg/dl (2.5-4.9)
[2017-03-19 22:50] LABS: OSMOLALITY 380 mOsm/kg (275-295)
[2017-03-20 00:16] LABS: URINE BILIRUBIN NEGATIVE (NEG); URINE BLOOD SMALL (NEG); URINE GLUCOSE (UA) NEGATIVE (NEG); URINE KETONE NEGATIVE (NEG); URINE LEUKOCYTE ESTERASE NEGATIVE (NEG); URINE NITRITE NEGATIVE (NEG); URINE PROTEIN NEGATIVE (NEG)
[2017-03-20 00:17] LABS: URINE APPEARANCE SLIGHTLY HAZY; URINE COLOR YELLOW
[2017-03-20 00:24] LABS: URINE EPITHELIAL CELLS 0-1 /[HPF] (0-10); URINE WBC 0 /[HPF] (0-5)
[2017-03-20 05:59] LABS: BASO % 0.5 % (0-2); EOS % 3.9 % (0-7); EOSINOPHIL ABSOLUTE COUNT 0.1 tho/cmm (0.0-0.7); HGB-HEMOGLOBIN 7.2 gm/dl (12.0-15.5); IMMATURE GRANULOCYTES ABSOLUTE 0.01 tho/cmm (0-0.03); IMMATURE GRANULOCYTES PERCENT 0.5 % (0-0.3); LYMPH % 39.3 % (20-45); LYMPH ABSOLUTE COUNT 0.8 tho/cmm (0.8-4.5); MCH (MEAN CORPUSCULAR HGB) 31.9 pg (28.0-32.0); MCV (MEAN CELL VOLUME) 102.2 fl (82.0-96.0); MONO % 13.1 % (0-12); MONOCYTE ABSOLUTE COUNT 0.3 tho/cmm (0.0-1.2); NEUTROPHIL ABSOLUTE COUNT 0.9 tho/cmm (1.6-8.0); NEUTROPHIL-AUTOMATED 0.9 tho/cmm (1.6-8.0); NEUTROPHILS % 42.7 % (40-80); RED BLOOD COUNT 2.26 mil/cmm (4.00-5.20); RED CELL DISTRIBUTION WIDTH 18.7 % (12.4-16.4); WHITE BLOOD COUNT 2.1 tho/cmm (4.0-10.0)
[2017-03-20 06:05] LABS: HCT-HEMATOCRIT 23.1 % (34.0-49.0); MCHC MEAN CORPUSCULAR HGB CONC 31.2 % (32.0-36.0)
[2017-03-20 06:10] LABS: PLATELET COUNT 24 tho/cmm (150-450)
[2017-03-20 06:31] LABS: ANION GAP 10 mmol/L (0-20); BLOOD UREA NITROGEN 6 mg/dl (6-24); CALCIUM 7.2 mg/dl (8.5-10.5); CARBON DIOXIDE-VENOUS 25 mmol/L (22-32); CHLORIDE 114 mmol/l (96-110); CREATININE 0.37 mg/dl (0.50-1.10); GLUCOSE 105 mg/dL (70-110); MAGNESIUM 1.7 mg/dl (1.8-2.6); POTASSIUM 3.4 mmol/L (3.7-5.1); SODIUM 146 mmol/L (135-145); eGFR VALUE FOR BLACK >90 mL/Min
[2017-07-27] MEDS ORDERED: NO HOME MEDICATION XX (09:21)
== END 2017-03-20 14:00 ==
LOC: EDMED 18:44 → EMR2 22:06 → CAR1 23:01
PROVIDERS: Emergency Medicine; Registered Nurse; ADMIT Hospitalist
DX: F10.129 Alcohol abuse with intoxication, unspecified (principal); D61.818 Other pancytopenia; E83.42 Hypomagnesemia; E87.6 Hypokalemia; K72.90 Hepatic failure, unspecified without coma; F19.10 Other psychoactive substance abuse, uncomplicated; E11.9 Type 2 diabetes mellitus without complications; E80.6 Other disorders of bilirubin metabolism; J44.9 Chronic obstructive pulmonary disease, unspecified; F17.210 Nicotine dependence, cigarettes, uncomplicated; Z79.899 Other long term (current) drug therapy; Z88.2 Allergy status to sulfonamides; Z91.040 Latex allergy status; Z87.01 Personal history of pneumonia (recurrent); Z98.890 Other specified postprocedural states; Y90.8 Blood alcohol level of 240 mg/100 ml or more
CPT/HCPCS: G0378; G0480; J0610; J3475; J7030